=== PATIENT | male | born 1955 | race Caucasian/White ===

== ENCOUNTER 2020-02-02 20:11 | Inpatient (IN) | payer OTHER ==
[2020-02-02 20:41] VITALS: BMI 28.1
[2020-02-02] MEDS ORDERED: ONDANSETRON 4 MG/2 ML VIAL IVPUSH ONE (21:02)
[2020-02-02] MEDS ORDERED: PANTOPRAZOLE SODIUM 40 MG VIAL IVPUSH ONE (21:02)
[2020-02-02] MEDS ORDERED: PANTOPRAZOLE SODIUM 40 MG VIAL ONE (21:20)
[2020-02-02 21:32] LABS: BASO % 0.3 % (0-2.0); EOS % 0.8 % (0-4.5); HEMATOCRIT 30.1 % (35.4-49); HEMOGLOBIN 10.1 GM/dL (11.7-16.9); LYMPH % 14.6 % (8-40); MCH 33.1 pg (25.7-33.7); MCHC 33.6 g/dl (32.0-35.9); MEAN CELL VOLUME 98.6 fl (80-96); MEAN PLT VOLUME 7.7 fl (7.5-11.1); MONO % 8.7 % (3.8-10.2); NEUT % 75.6 % (42.8-82.8); PLATELET COUNT 263 K/MM3 (134-434); RBC 3.05 M/mm3 (4.00-5.60); RDW 13.5 % (11.9-15.9); WHITE BLOOD COUNT 12.7 K/mm3 (4.0-10.0)
[2020-02-02 21:41] LABS: INR 1.01 (0.83-1.09); PROTHROMBIN TIME (PATIENT) 12.4 SEC (9.7-13.0)
[2020-02-02 21:44] LABS: ACTIVATED PTT 28.4 SECONDS (25.2-36.5)
[2020-02-02 21:55] LABS: ALBUMIN 3.4 g/dl (3.4-5.0); BLOOD UREA NITROGEN 32.7 mg/dL (7-18); CALCIUM 8.5 mg/dL (8.5-10.1)
[2020-02-02 21:58] LABS: CREATININE 1.1 mg/dL (0.55-1.3)
[2020-02-02 22:00] LABS: BILIRUBIN,TOTAL 0.7 mg/dL (0.2-1); TOT PROT 6.2 g/dl (6.4-8.2)
[2020-02-03 00:27] LABS: BASO % 0.4 % (0-2.0); EOS % 0.3 % (0-4.5); HEMATOCRIT 27.9 % (35.4-49); HEMOGLOBIN 9.4 GM/dL (11.7-16.9); MCH 32.8 pg (25.7-33.7); MCHC 33.7 g/dl (32.0-35.9); MEAN CELL VOLUME 97.3 fl (80-96); MEAN PLT VOLUME 7.5 fl (7.5-11.1); MONO % 3.7 % (3.8-10.2); NEUT % 84.6 % (42.8-82.8); PLATELET COUNT 215 K/MM3 (134-434); RBC 2.87 M/mm3 (4.00-5.60); RDW 13.3 % (11.9-15.9); WHITE BLOOD COUNT 9.7 K/mm3 (4.0-10.0)
[2020-02-03] MEDS ORDERED: SODIUM CHLORIDE 1,000 ML IV STA (04:13)
[2020-02-03] MEDS ORDERED: SODIUM CHLORIDE 1,000 ML IV SCH (08:00)
[2020-02-03 08:02] LABS: BASO % 0.3 % (0-2.0); EOS % 0.5 % (0-4.5); HEMATOCRIT 25.6 % (35.4-49); HEMOGLOBIN 8.6 GM/dL (11.7-16.9); LYMPH % 17.4 % (8-40); MCHC 33.7 g/dl (32.0-35.9); MEAN CELL VOLUME 98.1 fl (80-96); MEAN PLT VOLUME 7.7 fl (7.5-11.1); MONO % 9.4 % (3.8-10.2); NEUT % 72.4 % (42.8-82.8); PLATELET COUNT 214 K/MM3 (134-434); RBC 2.61 M/mm3 (4.00-5.60); RDW 13.5 % (11.9-15.9); WHITE BLOOD COUNT 8.1 K/mm3 (4.0-10.0)
[2020-02-03 08:07] LABS: ALBUMIN 3.1 g/dl (3.4-5.0); BLOOD UREA NITROGEN 27.1 mg/dL (7-18); CALCIUM 8.2 mg/dL (8.5-10.1); MAGNESIUM 2.2 mg/dL (1.8-2.4)
[2020-02-03 08:09] LABS: INR 1.06 (0.83-1.09)
[2020-02-03 08:10] LABS: CREATININE 0.8 mg/dL (0.55-1.3); PHOSPHOROUS 4.2 mg/dL (2.5-4.9)
[2020-02-03 08:11] LABS: ACTIVATED PTT 31.7 SECONDS (25.2-36.5); BILIRUBIN,TOTAL 0.8 mg/dL (0.2-1); TOT PROT 5.8 g/dl (6.4-8.2)
[2020-02-03] MEDS ORDERED: PANTOPRAZOLE SODIUM 80 MG in SODIUM CHLORIDE 100 ML IVPB SCH (08:36)
[2020-02-03 08:42] LABS: URINE APPEARANCE CLEAR; URINE BILIRUBIN NEGATIVE (NEGATIVE); URINE COLOR YELLOW; URINE GLUCOSE (UA) NEGATIVE (NEGATIVE); URINE KETONE NEGATIVE (NEGATIVE); URINE PROTEIN NEGATIVE (NEGATIVE)
[2020-02-03 08:43] LABS: EPI CELLS 2.6 /uL (0-25.1); HYALINE CASTS 5.9 /uL (0-3.1); URINE BACTERIA 0.9 /uL (0-1359); URINE LEUK ESTERASE NEGATIVE (NEGATIVE); URINE NITRITE NEGATIVE (NEGATIVE); URINE RBC 3.2 /uL (0-23.9); URINE WBC 3.3 /uL (0-25.8)
[2020-02-03] MEDS ORDERED: PANTOPRAZOLE SODIUM 40 MG VIAL IVPUSH SCH (10:00)
[2020-02-03 11:39] LABS: BASO % 0.5 % (0-2.0); EOS % 0.8 % (0-4.5); HEMATOCRIT 25.3 % (35.4-49); HEMOGLOBIN 8.7 GM/dL (11.7-16.9); LYMPH % 19.8 % (8-40); MCHC 34.4 g/dl (32.0-35.9); MEAN CELL VOLUME 98.8 fl (80-96); MEAN PLT VOLUME 7.7 fl (7.5-11.1); MONO % 10.7 % (3.8-10.2); NEUT % 68.2 % (42.8-82.8); PLATELET COUNT 185 K/MM3 (134-434); RBC 2.56 M/mm3 (4.00-5.60); RDW 13.1 % (11.9-15.9); WHITE BLOOD COUNT 7.7 K/mm3 (4.0-10.0)
[2020-02-03 12:07] VITALS: TEMP 98.8
[2020-02-03 14:18] VITALS: BP 109/64; PULSE 84
== END 2020-02-03 12:50 | disposition short-term general hospital (02) | DRG 378 ==
LOC: JER 20:11 → JERBED 02-03 01:27
PROVIDERS: ADMIT Internal Medicine; ATTEND Internal Medicine
DX: K92.2 Gastrointestinal hemorrhage, unspecified (principal); D62 Acute posthemorrhagic anemia; C78.7 Secondary malignant neoplasm of liver and intrahepatic bile duct; R55 Syncope and collapse; I95.9 Hypotension, unspecified; R74.01 Elevation of levels of liver transaminase levels; K86.89 Other specified diseases of pancreas; I10 Essential (primary) hypertension; E78.5 Hyperlipidemia, unspecified
CPT/HCPCS: 36415; 71045-TC-FY; 71260-TC; 74177-TC; 80053; 80307; 81003; 82272; 82728; 83540; 83550; 83735; 84100; 84466; 84484; 85025; 85045; 85610; 85730; 86850; 86900; 86901; 86922; 93005; 93010; 99291; 99292; C9803; G0378; U0003